=== PATIENT | male | born 1970 | race Two or more races ===

== ENCOUNTER 2021-02-07 11:26 | Emergency (ER) | payer OTHER ==
[~2021-02-07] VITALS: Ht 162.6 cm; Wt 82.1 kg
[2021-02-07] MEDS ORDERED: HYDROcodone/APAP 5/325MG 1 TAB TABLET PO ONE (12:30)
[2021-02-07] MEDS ORDERED: CEPHALEXIN 250 MG CAPSULE. PO ONE (12:30)
[2021-02-07] MEDS ORDERED: NEOMY/BACITR/POLYMYXIN OINT PACKET. TP ONE (12:30)
[2021-02-07] MEDS ORDERED: LIDOCAINE 2%/EPI 1:100,000 20 ML VIAL. INJ ONE (12:30)
--- NOTE | 2021-02-07 12:55 | RAD ---
EXAMINATION: Left fifth digit radiograph. VIEWS: 3 COMPARISON: None INDICATION:50 years, Male, fifth finger distal laceration. FINDINGS/ IMPRESSION: Acute comminuted displaced fifth distal phalanx and tuft with associated skin laceration, soft tissue gas and swelling. No extension to the articular surface. No dislocation or subluxation. Electronically signed by: Amber Fischer MD (02/07/2021 12:53 PM) [facility]
[2021-02-07] MEDS ORDERED: CEPH500C PO (15:12)
[2021-02-07] MEDS ORDERED: MUPI22OI2 TP (15:12)
[2021-02-07] MEDS ORDERED: HYDR-2761 PO (15:12)
--- NOTE | 2021-02-07 15:14 | PHYS DOC ---
Past Medical History Past Medical History: No Pertinent History Past Surgical History: No Surgical History Smoking Status: Never Smoker Alcohol Use: None Drug Use: None General Adult EDM: Chief Complaint: FINGER INJURY HPI: HPI: Patient is a 50-year-old male presents with report of left pinky finger injury after getting it caught in a saw while at work today. Patient initially attempted to present to urgent care who directed patient directly to the emergency department. Patient denies use of blood thinners. Patient reports last tetanus booster less than 5 years ago. Denies other injury. Review of Systems: Review of Systems: Constitutional: Denies fever or chills : Denies dysuria or hematuria Musculoskeletal: Reports left pinky finger pain and deformity Integument: Reports partial amputation/laceration of left pinky finger Neurologic: Denies headache, focal weakness or sensory changes Complete systems were reviewed and found to be within normal limits, except as documented in this note. Heart Score: C/O Chest Pain: N/A Current Medications: Current Medications Medications (Trade) Dose Ordered Sig/Carmen Start Time Stop Time Status Last Admin Dose Admin Acetaminophen/ Hydrocodone Bitart (Lortab 5/325) 1 tab 1X ONCE 02/07/21 12:30 02/07/21 12:31 DC 02/07/21 12:09 1 TAB Cephalexin HCl (Keflex) 500 mg 1X ONCE 02/07/21 12:30 02/07/21 12:31 DC 02/07/21 12:09 500 MG Lidocaine/ Epinephrine (LIDOCAINE 2%-EPI 1:100,000 multi-dose) 20 ml 1X ONCE 02/07/21 12:30 02/07/21 12:31 DC 02/07/21 12:10 20 ML Neomycin/ Polymyxin/ Bacitracin (Triple Antibiotic Ointment) 1 pkt 1X ONCE 02/07/21 12:30 02/07/21 12:31 DC 02/07/21 12:10 1 PKT Allergies: Allergies: Allergies Coded Allergies Type Severity Reaction Last Updated Verified No Known Drug Allergies 02/07/21 No Physical Exam: PE: Constitutional: Well developed, well nourished, no acute distress, non-toxic appearance HENT: Normocephalic, atraumatic Eyes: Conjunctiva normal, no discharge Neck: Normal range of motion, supple Lungs & Thorax: No respiratory distress, equal chest rise and fall Skin: Warm, dry, no erythema, laceration to distal phalanx of left 5th finger near nail Extremities: Partial amputation of left 5th distal phalax by nailbed, Neurologic: Alert and oriented X 3, no focal deficits noted Psychologic: Affect normal, judgment normal Current Patient Data: Vital Signs: Vital Signs Date Time Temp Pulse Resp B/P (MAP) Pulse Ox O2 Delivery O2 Flow Rate FiO2 02/07/21 12:09 17 99 Room Air 02/07/21 11:34 98.4 116 190/101 (130) 98.4 EKG: EKG: [] Radiology/Procedures: Radiology/Procedures: PROCEDURE: FINGER(S) LEFT EXAMINATION: Left fifth digit radiograph. VIEWS: 3 COMPARISON: None INDICATION:50 years, Male, fifth finger distal laceration. FINDINGS/ IMPRESSION: Acute comminuted displaced fifth distal phalanx and tuft with associated skin laceration, soft tissue gas and swelling. No extension to the articular surface. No dislocation or subluxation. Electronically signed by: Amber Fischer MD (02/07/2021 12:53 PM) [facility] Course & Med Decision Making: Course & Med Decision Making Pertinent Imaging studies reviewed. (See chart for details) Patient presents with HPI and physical exam consistent for partial left 5th distal phalanx amputation. Tetanus up-to-date. Pain addressed. Digital block performed with copious irrigation to wound. Laceration attempted to be repaired. Empiric antibiotic provided. Splint applied for protection of sutures. Patient stable for discharge with outpatient follow-up with PCP/hand surgeon. Hand surgeon referral provided. Discussed findings and plan with patient, who acknowledges understanding and agreement. Mary Kate Disclaimer: Mary Kate Disclaimer: This electronic medical record was generated, in whole or in part, using a voice recognition dictation system. Splinting Splinting : Location: Left 5th finger Pre-Made Type: metal (Aluminum finger splint) Pre-Proc Neuro Vasc Exam: abnormal (distal amputation component dusky) Post-Proc Neuro Vasc Exam: abnormal (dusky as before), unchanged from pre- exam Laceration/Wound Repair Laceration/Wound Repair : Wound Location: lower extremity (Left 5th finger) Wound's Depth, Shape: irregular, contused tissue Wound Length (cm): 4 Wound Explored: no foreign body removed Irrigated w/ Saline (ccs): 200 Anesthesia: Lidocaine w/ Epi (2%) Volume Anesthetic (ccs): 3 Wound Debrided: moderate Wound Repaired With: sutures Suture Size/Type: 4:0, nylon Number of Sutures: 8 Deep Layer Suture Size/Type: 4:0 (Vicryl) Number Deep Layer Sutures: 1 Sterile Dressing Applied?: Yes Splint Applied?: Yes Type of Splint Applied: Aluminium finger splint Progress Verbal consent obtained. Time out performed. Hand hygiene utilized. Wound cleaned with ChloraPrep. Anesthesia obtained via 4 nerve digital block of left 5th finger vial dorsal approach with a 25-gauge hypodermic needle with (3) mL's of lidocaine 2% with epinephrine. Copious irrigation performed. Partial amputated tip attempted to realign flap. Wound well approximated with subcutaneous suture with 4-0 Vicryl and followed by 4-0 Nylon sutures x 8 simple interrupted. Patient tolerated procedure well and without difficulty. Empiric antibiotic ointment applied prior to sterile dressing. Aluminum finger splint applied for protection. Departure Departure Impression: Primary Impression: Partial traumatic amputation of left little finger through phalanx Qualified Codes: S68.627A - Partial traumatic transphalangeal amputation of left little finger, initial encounter Disposition: HOME / SELF CARE / HOMELESS Condition: STABLE Referrals: NO PCP (PCP) Patient Instructions: Fingertip Injuries and Amputations Additional Instructions: Do not soak your wound. You may shower. Clean wound daily with soap and water. Change dressing 2 times daily. Use over the counter antibiotic ointment with each dressing change. Sutures need to be removed in 14 days or as directed by hand surgeon. Call Dr. Russell Neri (hand surgeon) [phone] [id number] May use over the counter Ibuprofen for pain or discomfort. Take prescribed antibiotic as directed to completion. Scripts Hydrocodone Bit/Acetaminophen (HYDROCODONE-APAP 5-325 ) 1 Tab Tablet 0.5-1 TAB PO PRN Q6HRS PRN for PAIN, #14 TAB 0 Refills Prov: AZ KATZ DO 02/07/21 Cephalexin (KEFLEX) 500 Mg Capsule 1 CAP PO QID, #40 CAP Prov: AZ KATZ DO 02/07/21 Mupirocin (MUPIROCIN OINTMENT) 22 Gm Oint...g. 1 SATISH TP TID for WOUND CARE, #1 EACH Prov: AZ KATZ DO 02/07/21 AZ KATZ DO Feb 07, 2021 15:14
[2021-02-07 15:17] VITALS: BP 152/84
== END 2021-02-07 15:26 | disposition home or self-care (01) ==
LOC: ER 11:26
DX: S68.627A Partial traumatic transphalangeal amputation of left little finger, initial encounter (principal); Y28.8XXA Contact with other sharp object, undetermined intent, initial encounter; Y93.89 Activity, other specified; Y92.89 Other specified places as the place of occurrence of the external cause; Y99.8 Other external cause status
CPT/HCPCS: 12001; 73140; 99285; J3490